=== PATIENT | male | born 1970 | race African-American/Black ===

== ENCOUNTER 2019-01-30 15:58 | Emergency (ER) | payer BC ==
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
[2019-01-30 16:50] LABS: CHLORIDE,CL 102 mmol/L (98-107); SODIUM,NA 137 mmol/L (136-148)
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
[2019-01-30] MEDS ORDERED: Ketorolac 60 MG/2 ML SDV IM ONE (17:10)
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
== END 2019-01-30 17:40 | disposition home or self-care (01) ==
LOC: MW.ED 15:58
DX: M54.2 Cervicalgia (principal); M54.5 Low back pain; Z88.8 Allergy status to other drugs, medicaments and biological substances; V89.2XXA Person injured in unspecified motor-vehicle accident, traffic, initial encounter
CPT/HCPCS: 36415; 70450; 71046; 72125; 72131; 80053; 81001; 85025; 85610; 96372; 99284; J1885; J2360

== ENCOUNTER 2020-05-31 03:15 | Observation (INO) | payer BC, OTHER ==
--- NOTE | 2020-05-31 03:33 | EDM.PDOC ---
ED HPI GENERAL MEDICAL PROBLEM - General Chief Complaint: Syncope Stated Complaint: PASSED OUT EARLIER Time Seen by Provider: 05/31/20 03:16 Source of Information: Reports: Patient, Old Records History Limitations: Reports: No Limitations - History of Present Illness INITIAL COMMENTS - FREE TEXT/NARRATIVE: 49-year-old male with past medical history of depression, hypothyroidism, and hypertension presenting with syncope and chest discomfort. Around 1900 hrs. this evening, the patient experienced a syncopal episode after getting up from a seated position on the toilet. He states that he was sitting on the toilet talking to his significant other when he stood up and and tried to walk to the bed. He then had a witnessed collapse. Family members called 911. There is no report of any seizure activity. Patient does not remember any preceding chest discomfort or shortness of breath just prior to collapsing. Paramedics arrived and evaluated patient, they did recommend transport to the ER but the patient declined. There was some concern about an abnormal prehospital EKG. The patient continued to worry about his syncopal episode so he decided to come into the ER to be evaluated this morning. He does report intermittent chest pain over the past 2 to 3 days, states that he experiences left-sided chest discomfort for a few seconds at a time. This never lasts for more than a minute. Nothing seems to trigger it. He describes it as "sharp" pain that does not radiate. He is not having any shortness of breath or chest discomfort right now. No known history of coronary artery disease or prior history of venous thromboembolism. Right now he has no complaints. ROS: A 10-point review of systems was negative, except as noted in the HPI (or in the ROS section of this note). Past medical history: Reviewed, no additional pertinent history. Surgical history: Reviewed in system, no additional pertinent history. Social history: Reviewed in system, no additional pertinent history. Family history: Reviewed in system, no additional pertinent history. PHYSICAL EXAM Vital signs reviewed. Nursing notes reviewed. Constitutional: Awake, alert, non-distressed. Head: Normocephalic, atraumatic. Eyes: EOMI, conjunctiva normal, no discharge, no scleral icterus. Ears, Nose, Throat: External ears and nose normal, moist oral mucosa. Cardiovascular: 2+ radial pulse, capillary refill less than 2 seconds. RRR no MRG Pulmonary: normal work of breathing, no accessory muscle use. CTA BL Abdomen/GI: Soft, nontender, nondistended, no guarding or rigidity, no masses. Musculoskeletal: No deformities. Integumentary: Appropriate color for ethnicity, warm, dry, no pallor or jaundice, no rash. Neurologic: Alert, answering questions appropriately, normal speech, no facial droop, moving all extremities well. Psychiatric: Appropriate mood and affect, normal thought process. chest area Pain Score (Numeric/FACES): 7 - Related Data Allergies Allergy/AdvReac Type Severity Reaction Status Date / Time neomycin Allergy Cannot Verified 05/31/20 03:41 Remember Home Meds: Home Meds Chlorthalidone 50 mg PO DAILY 05/31/20 [History] ClonazePAM [KlonoPIN] 2 mg PO BEDTIME 05/31/20 [History] Diltiazem HCl [Diltiazem 24Hr ER] 360 mg PO DAILY 05/31/20 [History] Levothyroxine Sodium [Synthroid] 200 mcg PO ACBREAKFAST 05/31/20 [History] Losartan [Cozaar] 100 mg PO DAILY 05/31/20 [History] Past Medical History - Past Health History Medical/Surgical History: Denies Medical/Surgical History Social & Family History - Family History Family Medical History: Noncontributory - Caffeine Use Caffeine Use: Reports: None ED ROS GENERAL - Review of Systems Review Of Systems: See Below ED EXAM, GENERAL - Physical Exam Exam: See Below EKG INTERPRETATION EKG Interpretation Comments: 12-Lead ECG Interpretation Acquired: 3:28 AM Rhythm: Sinus rhythm Rate: 73 bpm [place]: Normal Intervals: Normal Ectopy: None Ischemic Changes: None apparent RV Strain: No obvious RV strain pattern. ST Segments/T-Waves: No notable changes Interpretation: Unremarkable Course - Vital Signs Text/Narrative:: Patient hemodynamically stable, afebrile, well-appearing, looks nontoxic. Differential diagnosis includes but is not limited to: ACS, pulmonary embolism, aortic dissection, acute systolic heart failure, pneumonia, pneumothorax, pericardial effusion, pleural effusion, pericarditis, endocarditis, esophageal rupture, GERD, drug-induced chest pain, chest wall pain, arrhythmia, anemia, cardiac valvular disorder, and many others. I reviewed the prehospital twelve-lead EKG, it shows ST segment depression in the lateral precordial leads (V4 through V6). Blood work shows mild leukocytosis, normal hemoglobin. Electrolytes and renal function are reassuring. Troponin is negative. Chest x-rays appear clear by my read -no infiltrate, pneumothorax, or cardiomegaly. Twelve-lead EKG here in the emergency department shows no ischemia, ectopy, or preexcitation pattern. Appears normalized compared to the prehospital ECG. There is no objective evidence of myocardial ischemia here in the ER but the prehospital ECG is concerning. I have a low suspicion for pulmonary embolism given lack of tachycardia or hypoxia, no RV strain pattern on twelve-lead EKG. No clinical evidence of congestive heart failure. Lungs are clear to auscultation. No pulmonary infiltrates on x-rays. I am concerned by the patient's episode of syncope along with the abnormal prehospital EKG with ST-segment depression. We will plan to admit him the hospital service on observation status. I spoke with hospitalist Dr. Estrella who agrees to admit to observation. Last Recorded V/S: Last Vital Signs Temp 36 C L 05/31/20 03:20 Pulse 74 05/31/20 03:20 Resp 18 05/31/20 03:20 BP 153/86 H 05/31/20 03:20 Pulse Ox 96 05/31/20 03:20 - Orders/Labs/Meds Orders: Active Orders 24 hr Category Date Time Status Patient Status [ADT] Routine ADT 05/31/20 04:31 Active Cardiac Monitoring [RC] . DIRECTED Care 05/31/20 03:19 Active EKG Documentation Completion [RC] STAT Care 05/31/20 03:19 Active Pulse Oximetry [RC] ASDIRECTED Care 05/31/20 03:19 Active Chest 2V [CR] Stat Exams 05/31/20 03:35 Taken CORONAVIRUS COVID-19 PCR PHL Stat Lab 05/31/20 04:32 Ordered Labs: Laboratory Tests 05/31/20 05/31/20 Range/Units 03:35 03:35 WBC 13.27 H (4.0-11.0) K/uL RBC 4.43 L (4.50-5.90) M/uL Hgb 13.5 (13.0-17.0) g/dL Hct 41.5 (38.0-50.0) % MCV 93.7 (80.0-98.0) fL MCH 30.5 (27.0-32.0) pg MCHC 32.5 (31.0-37.0) g/dL RDW Std Deviation 41.9 (28.0-62.0) fl RDW Coeff of Jose D 12 (11.0-15.0) % Plt Count 327 (150-400) K/uL MPV 10.00 (7.40-12.00) fL Neut % (Auto) 72.9 (48.0-80.0) % Lymph % (Auto) 17.0 (16.0-40.0) % Barry % (Auto) 9.3 (0.0-15.0) % Eos % (Auto) 0.6 (0.0-7.0) % Baso % (Auto) 0.2 (0.0-1.5) % Neut # (Auto) 9.7 H (1.4-5.7) K/uL Lymph # (Auto) 2.3 (0.6-2.4) K/uL Barry # (Auto) 1.2 H (0.0-0.8) K/uL Eos # (Auto) 0.1 (0.0-0.7) K/uL Baso # (Auto) 0.0 (0.0-0.1) K/uL Nucleated RBC % 0.0 /100WBC Nucleated RBCs # 0 K/uL Sodium 137 (136-148) mmol/L Potassium 3.7 (3.5-5.1) mmol/L Chloride 98 (98-107) mmol/L Carbon Dioxide 28.6 (21.0-32.0) mmol/L BUN 19 H (7.0-18.0) mg/dL Creatinine 1.2 (0.8-1.3) mg/dL Est Cr Clr Drug Dosing 78.58 mL/min Estimated GFR (MDRD) > 60.0 ml/min Glucose 111 H (74-106) mg/dL Calcium 9.6 (8.5-10.1) mg/dL Troponin I < 0.050 (0.000-0.056) ng/mL Departure - Departure Time of Disposition: 04:35 Disposition: Refer to Observation Condition: Good Clinical Impression: Syncope and collapse Forms: ED Department Discharge Sepsis Event Note (ED) - Focused Exam Vital Signs: Vital Signs Temp Pulse Resp BP Pulse Ox 05/31/20 03:20 36 C L 74 18 153/86 H 96 - My Orders Last 24 Hours: My Active Orders 05/31/20 03:19 Cardiac Monitoring [RC] . DIRECTED EKG Documentation Completion [RC] STAT Pulse Oximetry [RC] ASDIRECTED 05/31/20 03:35 Chest 2V [CR] Stat 05/31/20 04:31 Patient Status [ADT] Routine 05/31/20 04:32 CORONAVIRUS COVID-19 PCR PHL Stat - Assessment/Plan Last 24 Hours: My Active Orders 05/31/20 03:19 Cardiac Monitoring [RC] . DIRECTED EKG Documentation Completion [RC] STAT Pulse Oximetry [RC] ASDIRECTED 05/31/20 03:35 Chest 2V [CR] Stat 05/31/20 04:31 Patient Status [ADT] Routine 05/31/20 04:32 CORONAVIRUS COVID-19 PCR PHL Stat
[2020-05-31 04:07] LABS: BLOOD UREA NITROGEN,BUN 19 mg/dL (7.0-18.0); CARBON DIOXIDE,CO2 28.6 mmol/L (21.0-32.0); CHLORIDE,CL 98 mmol/L (98-107); GLUCOSE RANDOM 111 mg/dL (74-106); POTASSIUM,K 3.7 mmol/L (3.5-5.1); SODIUM,NA 137 mmol/L (136-148)
--- NOTE | 2020-05-31 05:37 | CR ---
INDICATION: Chest pain COMPARISON: None available. FINDINGS: PA and lateral views of the chest were obtained. The lungs are clear. No focal or diffuse infiltrates are present. The heart is normal in size. The mediastinum is normal in appearance. The osseous structures are normal in appearance for the patient`s age. IMPRESSION: Normal chest 2 views. Dictated by Vignesh Chicas MD @ May 31 2020 5:35AM Signed by Dr. Vignesh Chicas @ May 31 2020 5:35AM
[2020-05-31] MEDS ORDERED: Aspirin 81 MG Tab.Chew PO ONE ×2 (06:15→09:15)
[2020-05-31 06:50] LABS: HEMOGLOBIN A1C 5.9 % (4.5-6.2)
--- NOTE | 2020-05-31 08:13 | PCM.HP.2 ---
<Desirae Liang - Last Filed: 05/31/20 20:35> H&P History of Present Illness - General Date of Service: 05/31/20 Admit Problem/Dx: Admission Diagnosis/Problem Admission Diagnosis/Problem Syncope and collapse Source of Information: Patient History Limitations: Reports: No Limitations - History of Present Illness Initial Comments - Free Text/Narative: Patient is a 49-year-old -[place] male with significant past medical history of hypertension, hypothyroidism presenting with episode of witnessed syncope and chest discomfort. Last night patient around 7 PM experienced a witnessed fall in front of his family after standing up from the toilet. Family members had called EMS. EMS recommended transport to acute facility however patient deferred. Of note patient also endorsed having 2 to 3 days of chest pain prior to syncopal episode. Chest pain is described as a nonradiating substernal sharp pain that comes and goes and not related to any exertion. Patient has been drinking alcohol; but denies drinking any more than usual. Also expresses restarting his tobacco abuse habit; a 4 to 5 cigarettes daily for the past 2 to 3 months. However overnight patient was concerned about what EMS had told him including some possible changes in his EKG; therefore proceeded to the ED. ED course: Troponin negative x2. No clinical evidence of congestive heart failure. Chest x-ray negative for acute processes. Prehospital EKG did show some ST segment depression however repeat EKG did not show any ST elevation or depression. Bedside; patient endorsed feeling better. Tells a provider that the only new medication was his venlafaxine 2 weeks prior. Otherwise no other new medications were started. chest area Pain Score (Numeric/FACES): 7 - Related Data Allergies/Adverse Reactions: Allergies Allergy/AdvReac Type Severity Reaction Status Date / Time neomycin Allergy Cannot Verified 05/31/20 08:13 Remember Home Medications: Home Meds Aspirin 81 mg PO DAILY tab.chew 05/31/20 [Rx] Chlorthalidone 50 mg PO DAILY 05/31/20 [History] Ciprofloxacin [Cipro XR] 500 mg PO DAILY 7 Days #14 tab.er 05/31/20 [Rx] ClonazePAM [KlonoPIN] 2 mg PO BEDTIME 05/31/20 [History] Diltiazem HCl [Diltiazem 24Hr ER] 360 mg PO DAILY 05/31/20 [History] Levothyroxine Sodium [Synthroid] 200 mcg PO ACBREAKFAST 05/31/20 [History] Losartan [Cozaar] 100 mg PO DAILY 05/31/20 [History] Omeprazole 20 mg PO BEDTIME 7 Days #7 cap.sr 05/31/20 [Rx] Venlafaxine [Effexor] 75 mg PO DAILY 05/31/20 [History] Past Medical History - Past Health History Medical/Surgical History: Denies Medical/Surgical History HEENT History: Reports: None Cardiovascular History: Reports: Hypertension Respiratory History: Reports: None Gastrointestinal History: Reports: None Genitourinary History: Reports: None Musculoskeletal History: Reports: None Neurological History: Reports: None Psychiatric History: Reports: Depression Endocrine/Metabolic History: Reports: Hypothyroidism Insulin Pump Model and Fbi Profiler: None Hematologic History: Reports: None Immunologic History: Reports: None Oncologic (Cancer) History: Reports: None Dermatologic History: Reports: None - Infectious Disease History Infectious Disease History: Reports: None - Past Surgical History Head Surgeries/Procedures: Reports: None Social & Family History - Family History Family Medical History: Noncontributory - Tobacco Use Smoking Status *Q: Current Every Day Smoker Years of Tobacco use: 1 Packs/Tins Daily: 0.5 - Caffeine Use Caffeine Use: Reports: None - Recreational Drug Use Recreational Drug Use: No H&P Review of Systems - Review of Systems: Review Of Systems: See Below General: Reports: No Symptoms HEENT: Reports: No Symptoms Pulmonary: Reports: No Symptoms Cardiovascular: Reports: No Symptoms Gastrointestinal: Reports: No Symptoms Genitourinary: Reports: No Symptoms Musculoskeletal: Reports: No Symptoms Skin: Reports: No Symptoms Psychiatric: Reports: No Symptoms Neurological: Reports: No Symptoms Hematologic/Lymphatic: Reports: No Symptoms Exam - Exam Exam: See Below - Vital Signs Vital Signs: Last Vital Signs Temp 96.6 F L 05/31/20 06:31 Pulse 70 05/31/20 06:31 Resp 17 05/31/20 06:31 BP 143/87 H 05/31/20 06:31 Pulse Ox 95 05/31/20 06:31 Orthostatic Blood Pressure [ 137/74 Supine] Orthostatic Blood Pressure [ 144/92 Standing] Orthostatic Blood Pressure [ 143/87 Sitting] Weight: 122.334 kg - Exam Quality Assessment: No: Supplemental Oxygen General: Alert, Oriented, Cooperative HEENT: EOMI Neck: Supple, Trachea Midline Lungs: Clear to Auscultation, Normal Respiratory Effort Cardiovascular: Regular Rate, Regular Rhythm GI/Abdominal Exam: Soft, Non-Tender Back Exam: Normal Inspection Extremities: Normal Inspection, No Pedal Edema Skin: Warm, Dry Neurological: Cranial Nerves Intact Neuro Extensive - Mental Status: Alert, Oriented x3 - Patient Data Lab Results Last 24 hrs: Laboratory Results - last 24 hr 05/31/20 05/31/20 05/31/20 Range/Units 03:35 03:35 04:35 WBC 13.27 H (4.0-11.0) K/uL RBC 4.43 L (4.50-5.90) M/uL Hgb 13.5 (13.0-17.0) g/dL Hct 41.5 (38.0-50.0) % MCV 93.7 (80.0-98.0) fL MCH 30.5 (27.0-32.0) pg MCHC 32.5 (31.0-37.0) g/dL RDW Std Deviation 41.9 (28.0-62.0) fl RDW Coeff of Jose D 12 (11.0-15.0) % Plt Count 327 (150-400) K/uL MPV 10.00 (7.40-12.00) fL Neut % (Auto) 72.9 (48.0-80.0) % Lymph % (Auto) 17.0 (16.0-40.0) % [place] % (Auto) 9.3 (0.0-15.0) % Eos % (Auto) 0.6 (0.0-7.0) % Baso % (Auto) 0.2 (0.0-1.5) % Neut # (Auto) 9.7 H (1.4-5.7) K/uL Lymph # (Auto) 2.3 (0.6-2.4) K/uL [place] # (Auto) 1.2 H (0.0-0.8) K/uL Eos # (Auto) 0.1 (0.0-0.7) K/uL Baso # (Auto) 0.0 (0.0-0.1) K/uL Nucleated RBC % 0.0 /100WBC Nucleated RBCs # 0 K/uL Sodium 137 (136-148) mmol/L Potassium 3.7 (3.5-5.1) mmol/L Chloride 98 (98-107) mmol/L Carbon Dioxide 28.6 (21.0-32.0) mmol/L BUN 19 H (7.0-18.0) mg/dL Creatinine 1.2 (0.8-1.3) mg/dL Est Cr Clr Drug Dosing 78.58 mL/min Estimated GFR (MDRD) > 60.0 ml/min Glucose 111 H (74-106) mg/dL Hemoglobin A1c (4.5-6.2) % Calcium 9.6 (8.5-10.1) mg/dL Phosphorus (2.6-4.7) mg/dL Magnesium (1.8-2.4) mg/dL Troponin I < 0.050 (0.000-0.056) ng/mL Triglycerides (0-200) mg/dL Cholesterol (50-200) mg/dL LDL Cholesterol, Calc (60-180) mg/dL VLDL Cholesterol (5-55) mg/dL HDL Cholesterol (40-60) mg/dL Cholesterol/HDL Ratio (3.3-6.0) TSH 3rd Generation (0.36-3.74) uIU/mL Urine Color Urine Appearance Urine pH (5.0-8.0) Ur Specific [place] (1.001-1.035) Urine Protein (NEGATIVE) mg/dL Urine Glucose (UA) (NEGATIVE) mg/dL Urine Ketones (NEGATIVE) mg/dL Urine Occult Blood (NEGATIVE) Urine Nitrite (NEGATIVE) Urine Bilirubin (NEGATIVE) Urine Urobilinogen (<2.0) EU/dL Ur Leukocyte Esterase (NEGATIVE) Urine RBC (0-2/HPF) Urine WBC (0-5/HPF) Ur Epithelial Cells (NONE-FEW) Urine Bacteria (NEGATIVE) Urine Mucus (NONE-MOD) COVID-19 (JUAN M) NEGATIVE (NEGATIVE) 05/31/20 05/31/20 05/31/20 Range/Units 06:25 06:25 06:37 WBC (4.0-11.0) K/uL RBC (4.50-5.90) M/uL Hgb (13.0-17.0) g/dL Hct (38.0-50.0) % MCV (80.0-98.0) fL MCH (27.0-32.0) pg MCHC (31.0-37.0) g/dL RDW Std Deviation (28.0-62.0) fl RDW Coeff of Jose D (11.0-15.0) % Plt Count (150-400) K/uL MPV (7.40-12.00) fL Neut % (Auto) (48.0-80.0) % Lymph % (Auto) (16.0-40.0) % [place] % (Auto) (0.0-15.0) % Eos % (Auto) (0.0-7.0) % Baso % (Auto) (0.0-1.5) % Neut # (Auto) (1.4-5.7) K/uL Lymph # (Auto) (0.6-2.4) K/uL [place] # (Auto) (0.0-0.8) K/uL Eos # (Auto) (0.0-0.7) K/uL Baso # (Auto) (0.0-0.1) K/uL Nucleated RBC % /100WBC Nucleated RBCs # K/uL Sodium (136-148) mmol/L Potassium (3.5-5.1) mmol/L Chloride (98-107) mmol/L Carbon Dioxide (21.0-32.0) mmol/L BUN (7.0-18.0) mg/dL Creatinine (0.8-1.3) mg/dL Est Cr Clr Drug Dosing mL/min Estimated GFR (MDRD) ml/min Glucose (74-106) mg/dL Hemoglobin A1c 5.9 (4.5-6.2) % Calcium (8.5-10.1) mg/dL Phosphorus 4.0 (2.6-4.7) mg/dL Magnesium 2.1 (1.8-2.4) mg/dL Troponin I < 0.050 (0.000-0.056) ng/mL Triglycerides 79 (0-200) mg/dL Cholesterol 176 (50-200) mg/dL LDL Cholesterol, Calc 120 (60-180) mg/dL VLDL Cholesterol 15 (5-55) mg/dL HDL Cholesterol 40 (40-60) mg/dL Cholesterol/HDL Ratio 4.4 (3.3-6.0) TSH 3rd Generation 1.47 (0.36-3.74) uIU/mL Urine Color YELLOW Urine Appearance CLEAR Urine pH 6.0 (5.0-8.0) Ur Specific [place] 1.025 (1.001-1.035) Urine Protein NEGATIVE (NEGATIVE) mg/dL Urine Glucose (UA) NEGATIVE (NEGATIVE) mg/dL Urine Ketones NEGATIVE (NEGATIVE) mg/dL Urine Occult Blood TRACE-INTACT H (NEGATIVE) Urine Nitrite NEGATIVE (NEGATIVE) Urine Bilirubin NEGATIVE (NEGATIVE) Urine Urobilinogen 1.0 (<2.0) EU/dL Ur Leukocyte Esterase TRACE H (NEGATIVE) Urine RBC 0-2 (0-2/HPF) Urine WBC 0-3 (0-5/HPF) Ur Epithelial Cells FEW (NONE-FEW) Urine Bacteria FEW (NEGATIVE) Urine Mucus LIGHT (NONE-MOD) COVID-19 (JUAN M) (NEGATIVE) Result Diagrams: 05/31/20 03:35 05/31/20 03:35 Sepsis Event Note - Evaluation Sepsis Screening Result: No Definite Risk - Focused Exam Vital Signs: Vital Signs Temp Pulse Resp BP Pulse Ox 05/31/20 06:31 96.6 F L 70 17 143/87 H 95 05/31/20 05:09 96.8 F L 68 18 132/73 96 05/31/20 04:35 74 18 138/81 95 05/31/20 03:20 96.8 F L 74 18 153/86 H 96 Problem List Initiated/Reviewed/Updated: Yes Orders Last 24hrs: Active Orders 24 hr Category Date Time Status Patient Status [ADT] Routine ADT 05/31/20 04:31 Active Ambulate [RC] ASDIRECTED Care 05/31/20 06:08 Active Cardiac Monitoring [RC] . DIRECTED Care 05/31/20 03:19 Active EKG Documentation Completion [RC] STAT Care 05/31/20 03:19 Active Orthostatic Vital Signs [RC] ASDIRECTED Care 05/31/20 06:07 Active Oxygen Therapy Adult [Oxygen Therapy] [RC] ASDIRECTED Care 05/31/20 06:08 Active Pulse Oximetry [RC] ASDIRECTED Care 05/31/20 03:19 Active Telemetry Monitoring [Cardiac Monitoring] [RC] Q8H Care 05/31/20 06:09 Active Heart Healthy Diet [DIET] Diet 05/31/20 Breakfast Active Echo Comp wo Cont [US] Routine Exams 05/31/20 06:03 Ordered TROPONIN I [CHEM] Q3H Lab 05/31/20 09:07 Ordered Aspirin Med 06/01/20 09:00 Active 81 mg PO DAILY Medication Orders Aspirin (Aspirin) 81 mg PO DAILY [facility] Assessment/Plan Comment:: Assessment: 1. Chest pain : Acute coronary syndrome rule out 2. Witnessed syncopal episode 3. Past medical history: Hypertension, hypothyroidism, depression/anxiety, tobacco abuse 4. UTI Plan Admitted to observation. Full code. I's and O's per routine Telemetry. Troponin x3 was negative. Chest x-ray negative repeat EKG did not demonstrate any acute ST or elevation or depressions.. Chest pain had resolved. Discussed other possible etiologies including new medications, alcohol use, tobacco abuse. Advised patient to continue medication unless told otherwise by primary care provider. Outpatient stress test and 0 patch prescription provided. Outpatient cardiology follow-up also provided after PCP referral. UA was also positive: Patient was denying any dysuria and or polyuria; started on ciprofloxacin for 7 days. Day of discharge patient was requesting to go home; asymptomatic; afebrile Follow-up set up Patient started on aspirin daily plus simvastatin Advised to follow-up with primary care and outpatient cardiology Discharged in stable condition <Jackie Estrella - Last Filed: 06/03/20 11:33> H&P History of Present Illness - General Admit Problem/Dx: Admission Diagnosis/Problem Admission Diagnosis/Problem Syncope and collapse - History of Present Illness Initial Comments - Free Text/Narative: I performed a history and physical exam of the patient and discussed management with resident. I have reviewed the residents note and agree with documented findings and plan unless otherwise specified in my note. Exam - Vital Signs Vital Signs: Last Vital Signs Temp 35.9 C L 05/31/20 06:31 Pulse 70 05/31/20 06:31 Resp 17 05/31/20 06:31 BP 143/87 H 05/31/20 06:31 Pulse Ox 95 05/31/20 06:31 Orthostatic Blood Pressure [ 137/74 Supine] Orthostatic Blood Pressure [ 144/92 Standing] Orthostatic Blood Pressure [ 143/87 Sitting] - Patient Data Result Diagrams: 05/31/20 03:35 05/31/20 03:35
[2020-05-31] MEDS ORDERED: cefTRIAXone 1 GM Vial IVPUSH ONE (08:15)
[2020-05-31] MEDS ORDERED: cefTRIAXone 1 GM in Premix Bag 1 BAG IV ONE (08:30)
[2020-06-01] MEDS ORDERED: Aspirin 81 MG Tab.Chew PO SCH (09:00)
== END 2020-05-31 15:45 | disposition home or self-care (01) ==
LOC: MW.ED 03:15 → MW.MS 04:31
PROVIDERS: ADMIT Student in an Organized Health Care Education/Training Program; ATTEND Student in an Organized Health Care Education/Training Program
DX: R55 Syncope and collapse (principal); R07.89 Other chest pain; N39.0 Urinary tract infection, site not specified; F17.210 Nicotine dependence, cigarettes, uncomplicated; F41.9 Anxiety disorder, unspecified; F32.9 Major depressive disorder, single episode, unspecified; E03.9 Hypothyroidism, unspecified; I10 Essential (primary) hypertension; Z79.899 Other long term (current) drug therapy; Z88.1 Allergy status to other antibiotic agents; Z79.890 Hormone replacement therapy; Z79.82 Long term (current) use of aspirin; Z20.828 Contact with and (suspected) exposure to other viral communicable diseases
CPT/HCPCS: 0296T; 36415; 71046; 80048; 80061; 81001; 83036; 83735; 84100; 84443; 84484; 85025; 87635; 93005; 93306; A9270; J0696; 99285-25; U0002

== ENCOUNTER 2021-08-04 08:06 | Emergency (ER) | payer BC | END 2021-08-04 09:55 | disposition left against medical advice (07) | LOC: MW.ED 08:06 | DX: Z53.21 Procedure and treatment not carried out due to patient leaving prior to being seen by health care provider (principal) ==

== ENCOUNTER 2022-01-24 22:22 | Emergency (ER) | payer BC ==
[2022-01-25] MEDS ORDERED: predniSONE 20 MG Tab PO ONE (00:09)
[2022-01-25] MEDS ORDERED: guaiFENesin/Dextromethorphan 100-10 MG/5 ML Soln 10 ML Cup PO STA (00:09)
[2022-01-25] MEDS ORDERED: Azithromycin 250 MG Tab PO STA (00:10)
== END 2022-01-25 00:24 | disposition home or self-care (01) ==
LOC: MW.ED 22:22
DX: J04.0 Acute laryngitis (principal); I10 Essential (primary) hypertension; E03.9 Hypothyroidism, unspecified; Z88.1 Allergy status to other antibiotic agents; Z79.82 Long term (current) use of aspirin; Z79.899 Other long term (current) drug therapy
CPT/HCPCS: 99283; A9270

== ENCOUNTER 2022-01-29 14:56 | Emergency (ER) | payer BC | END 2022-01-29 15:34 | disposition home or self-care (01) | LOC: MW.ED 14:56 | DX: Z00.8 Encounter for other general examination (principal); I10 Essential (primary) hypertension; E03.9 Hypothyroidism, unspecified; Z88.1 Allergy status to other antibiotic agents; Z79.82 Long term (current) use of aspirin; Z79.899 Other long term (current) drug therapy | CPT/HCPCS: 99282 ==

== ENCOUNTER 2022-04-21 12:47 | Emergency (ER) | payer BC ==
[2022-04-21] MEDS ORDERED: Ketorolac 60 MG/2 ML SDV IM ONE (14:25)
== END 2022-04-21 14:46 | disposition home or self-care (01) ==
LOC: MW.ED 12:47
DX: S89.91XA Unspecified injury of right lower leg, initial encounter (principal); I10 Essential (primary) hypertension; E03.9 Hypothyroidism, unspecified; Z79.899 Other long term (current) drug therapy; X50.1XXA Overexertion from prolonged static or awkward postures, initial encounter
CPT/HCPCS: 73562; 96372; 99283; J1885

== ENCOUNTER 2022-04-26 19:45 | Emergency (ER) | payer BC ==
[2022-04-26] MEDS ORDERED: Acetaminophen/HYDROcodone 325-5 MG Tab PO ONE (20:20)
[2022-04-26] MEDS ORDERED: Ketorolac 60 MG/2 ML SDV IM ONE (20:20)
== END 2022-04-26 21:04 | disposition home or self-care (01) ==
LOC: MW.ED 19:45
DX: S80.221A Blister (nonthermal), right knee, initial encounter (principal); I10 Essential (primary) hypertension; E03.9 Hypothyroidism, unspecified; Z88.1 Allergy status to other antibiotic agents; Z79.82 Long term (current) use of aspirin; Z79.899 Other long term (current) drug therapy
CPT/HCPCS: 96372; 99283; A9270; J1885

== ENCOUNTER 2022-07-31 08:02 | Day surgery (SDC) | payer BC ==
[~2022-07-31 08:02] MED LIST: Lactated Ringers 1,000 ML IV SCH; Lidocaine 2% 5 ML SDV ONE; Propofol 200 MG/20 ML SDV ONE; fentaNYL 100 MCG/2 ML SDV ONE
[2022-07-31] MEDS ORDERED: Propofol 200 MG/20 ML SDV ONE ×3 (10:21→10:55)
[2022-07-31] MEDS ORDERED: Lactated Ringers 1,000 ML IV SCH (11:15)
== END 2022-07-31 11:38 | disposition home or self-care (01) ==
LOC: MW.SDS 08:02
PROVIDERS: ATTEND Surgery
DX: Z12.11 Encounter for screening for malignant neoplasm of colon (principal); D12.2 Benign neoplasm of ascending colon; K57.30 Diverticulosis of large intestine without perforation or abscess without bleeding; I10 Essential (primary) hypertension; F32.A Depression, unspecified; E03.9 Hypothyroidism, unspecified; G47.33 Obstructive sleep apnea (adult) (pediatric); F17.210 Nicotine dependence, cigarettes, uncomplicated; E78.5 Hyperlipidemia, unspecified; M19.90 Unspecified osteoarthritis, unspecified site; E66.9 Obesity, unspecified; Z79.899 Other long term (current) drug therapy; Z88.1 Allergy status to other antibiotic agents; Z79.890 Hormone replacement therapy; Z68.38 Body mass index [BMI] 38.0-38.9, adult
CPT/HCPCS: 45380; 45385; J2704; J3010; J7120; 00812

== ENCOUNTER 2023-08-29 08:21 | Emergency (ER) | payer BC ==
[2023-08-29] MEDS ORDERED: Ondansetron 4 MG/2 ML SDV IVPUSH ONE (08:38)
[2023-08-29] MEDS ORDERED: Sodium Chloride 0.9% 1,000 ML IV ONE (08:38)
[2023-08-29] MEDS ORDERED: Famotidine 20 MG/2 ML SDV IVPUSH ONE (08:38)
[2023-08-29] MEDS ORDERED: Alum Hydro/Mag Hydro/Simeth XS 15 ML, Lidocaine 2% 5 ML PO ONE ×2 (08:40)
[2023-08-29 08:46] LABS: BASOPHILS ABSOLUTE AUTO 0.03 K/uL (0.00-0.20); BASOPHILS PERCENT AUTO 0.3 % (0.0-1.0); EOSINOPHILS PERCENT AUTO 1.1 % (0.0-6.0); HEMATOCRIT 44.4 % (42.0-52.0); HEMOGLOBIN 14.6 g/dL (14.0-18.0); IMMATURE GRAN ABSOLUTE AUTO 0.07 K/uL (0.00-0.05); IMMATURE GRAN PERCENT AUTO 0.8 % (0.0-0.4); LYMPHOCYTES ABSOLUTE AUTO 2.77 K/uL (1.00-4.80); LYMPHOCYTES PERCENT AUTO 31.3 % (24.0-44.0); MEAN CORPUSCULAR HEMOGLOBIN 29.7 pg (28.0-32.0); MEAN CORPUSCULAR HGB CONC 32.9 g/dL (32.0-36.0); MEAN CORPUSCULAR VOLUME 90.2 fL (83.0-99.0); MEAN PLATELET VOLUME 9.8 fL (9.4-12.4); MONOCYTES ABSOLUTE AUTO 0.71 K/uL (0.00-0.80); NEUTROPHILS ABSOLUTE AUTO 5.16 K/uL (1.80-7.70); NEUTROPHILS PERCENT AUTO 58.5 % (41.0-71.0); PLATELET COUNT,PLT 362 K/uL (150-400); RED BLOOD CELL COUNT 4.92 M/uL (4.52-5.90); WHITE BLOOD CELL COUNT,WBC 8.84 K/uL (3.9-11.3)
[2023-08-29 09:09] LABS: ALBUMIN 4.2 g/dL (3.4-5.0); BILIRUBIN TOTAL 0.8 mg/dL (0.2-1.0); CALCIUM 9.5 mg/dL (8.5-10.1); CARBON DIOXIDE,CO2 30.8 mmol/L (21.0-32.0); EST CRCL DRUG DOSING (CG) 87.39 mL/min; MAGNESIUM 1.9 mg/dL (1.8-2.4); POTASSIUM,K 2.8 mmol/L (3.5-5.1); PROTEIN TOTAL,TP 8.3 g/dL (6.4-8.2)
[2023-08-29] MEDS ORDERED: Potassium Chloride 20 MEQ Tab.ER PO ONE (09:38)
[2023-08-29 09:48] LABS: CORONAVIRUS COVID-19 NAA NEGATIVE (NEGATIVE); INFLUENZA A NAA NEGATIVE (NEGATIVE); INFLUENZA B NAA NEGATIVE (NEGATIVE)
== END 2023-08-29 10:17 | disposition home or self-care (01) ==
LOC: MW.ED 08:21
DX: K52.9 Noninfective gastroenteritis and colitis, unspecified (principal); I10 Essential (primary) hypertension; E78.00 Pure hypercholesterolemia, unspecified; E03.9 Hypothyroidism, unspecified; E66.9 Obesity, unspecified; Z68.37 Body mass index [BMI] 37.0-37.9, adult; Z79.899 Other long term (current) drug therapy; Z88.1 Allergy status to other antibiotic agents; Z20.822 Contact with and (suspected) exposure to COVID-19
CPT/HCPCS: 0240U; 36415; 80053; 83690; 83735; 85025; 87045; 87046; 87328; 87329; 87338; 87449; 87899; 96361; 96374; 96375; 99284; A9270; J2405; J3490; J7030

== ENCOUNTER 2023-09-17 11:05 | Emergency (ER) | payer BC ==
[2023-09-17] MEDS ORDERED: Sodium Chloride 0.9% 1,000 ML IV STA (11:34)
[2023-09-17 11:53] LABS: BASOPHILS ABSOLUTE AUTO 0.01 K/uL (0.00-0.20); BASOPHILS PERCENT AUTO 0.1 % (0.0-1.0); EOSINOPHILS ABSOLUTE AUTO 0.08 K/uL (0.00-0.45); HEMATOCRIT 46.2 % (42.0-52.0); HEMOGLOBIN 15.3 g/dL (14.0-18.0); IMMATURE GRAN ABSOLUTE AUTO 0.03 K/uL (0.00-0.05); IMMATURE GRAN PERCENT AUTO 0.4 % (0.0-0.4); LYMPHOCYTES ABSOLUTE AUTO 1.69 K/uL (1.00-4.80); LYMPHOCYTES PERCENT AUTO 21.8 % (24.0-44.0); MEAN CORPUSCULAR HEMOGLOBIN 29.5 pg (28.0-32.0); MEAN CORPUSCULAR HGB CONC 33.1 g/dL (32.0-36.0); MEAN CORPUSCULAR VOLUME 89.2 fL (83.0-99.0); MEAN PLATELET VOLUME 9.9 fL (9.4-12.4); MONOCYTES ABSOLUTE AUTO 0.53 K/uL (0.00-0.80); MONOCYTES PERCENT AUTO 6.8 % (0.0-8.0); NEUTROPHILS PERCENT AUTO 69.9 % (41.0-71.0); PLATELET COUNT,PLT 283 K/uL (150-400); RED BLOOD CELL COUNT 5.18 M/uL (4.52-5.90); WHITE BLOOD CELL COUNT,WBC 7.74 K/uL (3.9-11.3)
[2023-09-17 12:15] LABS: ALBUMIN 4.1 g/dL (3.4-5.0); BILIRUBIN TOTAL 0.8 mg/dL (0.2-1.0); CALCIUM 9.5 mg/dL (8.5-10.1); CREATININE 1.2 mg/dL (0.8-1.3); EST CRCL DRUG DOSING (CG) 72.83 mL/min; POTASSIUM,K 3.4 mmol/L (3.5-5.1); PROTEIN TOTAL,TP 8.2 g/dL (6.4-8.2)
[2023-09-17] MEDS ORDERED: Potassium Chloride 20 MEQ Tab.ER PO STA (12:31)
[2023-09-17] MEDS ORDERED: Loperamide 2 MG Cap PO STA (12:31)
== END 2023-09-17 13:05 | disposition home or self-care (01) ==
LOC: MW.ED 11:05
DX: R19.7 Diarrhea, unspecified (principal); E78.00 Pure hypercholesterolemia, unspecified; E03.9 Hypothyroidism, unspecified; E66.9 Obesity, unspecified; Z79.899 Other long term (current) drug therapy; Z88.1 Allergy status to other antibiotic agents; Z68.35 Body mass index [BMI] 35.0-35.9, adult
CPT/HCPCS: 36415; 80053; 83690; 83735; 85025; 96360; 99284; A9270; J7030; 99283

== ENCOUNTER 2023-10-01 07:54 | Day surgery (SDC) | payer BC ==
[2023-10-01] MEDS ORDERED: Lactated Ringers 1,000 ML IV SCH ×2 (09:00→10:30)
[2023-10-01] MEDS ORDERED: Propofol 200 MG/20 ML SDV ONE ×3 (09:13→10:03)
[2023-10-01] MEDS ORDERED: Lidocaine 2% 5 ML SDV ONE (09:13)
== END 2023-10-01 10:39 | disposition home or self-care (01) ==
LOC: MW.SDS 07:54
PROVIDERS: ATTEND Surgery
DX: D12.2 Benign neoplasm of ascending colon (principal); D12.4 Benign neoplasm of descending colon; K29.50 Unspecified chronic gastritis without bleeding; B96.81 Helicobacter pylori [H. pylori] as the cause of diseases classified elsewhere; K21.9 Gastro-esophageal reflux disease without esophagitis; I10 Essential (primary) hypertension; E03.9 Hypothyroidism, unspecified; F32.A Depression, unspecified; E66.9 Obesity, unspecified; Z68.37 Body mass index [BMI] 37.0-37.9, adult; F17.210 Nicotine dependence, cigarettes, uncomplicated; Z79.890 Hormone replacement therapy; Z79.899 Other long term (current) drug therapy
CPT/HCPCS: 43239; 45380; J2704; J7120; J3490

== ENCOUNTER 2023-12-19 11:57 | Emergency (ER) | payer BC ==
[2023-12-19] MEDS: predniSONE 10 MG Tab PO ONE (12:51)
[2023-12-19] MEDS: Ketorolac 30 MG/ML SDV IM ONE (12:51)
[2023-12-19] MEDS: traMADol 50 MG Tab PO ONE (13:10)
== END 2023-12-19 13:19 | disposition home or self-care (01) ==
LOC: MW.ED 11:57
DX: M17.0 Bilateral primary osteoarthritis of knee (principal); M70.52 Other bursitis of knee, left knee; Z75.8 Other problems related to medical facilities and other health care; I10 Essential (primary) hypertension; E78.00 Pure hypercholesterolemia, unspecified; E66.9 Obesity, unspecified; E03.9 Hypothyroidism, unspecified; Z88.8 Allergy status to other drugs, medicaments and biological substances; Z79.899 Other long term (current) drug therapy; Z79.2 Long term (current) use of antibiotics; Z68.34 Body mass index [BMI] 34.0-34.9, adult
CPT/HCPCS: 96372; 99283; A9270; J1885